=== PATIENT | female | born 1940 | race Caucasian/White ===

== ENCOUNTER → 2016-10-16 | Outpatient (CLI) | payer MEDICARE, BC, OTHER | END | disposition home or self-care (01) | LOC: GMAH 14:23 | PROVIDERS: ATTEND Family Medicine | DX: N39.0 Urinary tract infection, site not specified (principal) ==

== ENCOUNTER 2016-10-19 14:35 | Emergency (ER) | payer MEDICARE, BC, OTHER ==
[2016-10-19] MEDS ORDERED: SODIUM CHLORIDE 0.9% 1000ML 1,000 ML IVS ONE (15:14)
--- NOTE | 2016-10-19 15:32 | ED.PDOC ---
History of Present Illness - General Chief Complaint: General Stated Complaint: Dehydration Time Seen by Provider: 10/19/16 15:13 Source: patient, RN notes reviewed, Vital Signs reviewed Exam Limitations: no limitations - History of Present Illness Initial Comments: Patient comes in with c/o dehydration. She has been having diarrhea and now is feeling weak and getting dizzy when she stands up. When she saw her Dr. on he told her if oral hydration was not working to come to ER for IV fluids. Timing/Duration: constant - 4 days Severity: moderate Improving Factors: nothing Worsening Factors: nothing Associated Symptoms: malaise, weakness Allergies/Adverse Reactions: Allergies Fish Allergy Allergy (Verified 02/06/15 20:17) Home Medications: Ambulatory Orders Amlodipine Besylate-Benazepril [Lotrel 10-20 mg] 1 cap PO 02/06/15 Black Cohosh-Soy Isoflavones-G [Estroven] 1 tab PO 02/06/15 Calcium Citrate-Vitamin D [Calcitrate Plus D 315-200 mg-Unit] 1 tab PO 02/06/15 Garlic [Garlic 705 mg] 1 cap PO 02/06/15 Iron 02/06/15 Metoprolol Succinate [Metoprolol Succinate ER] 25 mg PO 02/06/15 Multiple Vitamin [Multi Vitamin Daily] 1 tab PO 02/06/15 Thyroid [[place] Thyroid] 15 mg PO 02/06/15 levoFLOXacin [Levaquin] 500 mg PO QDAC #10 tab 02/06/15 Acetaminophen W/ Codeine [Tylenol w/Codeine 300-30 mg] 1 tab PO Q4HR PRN #30 tab 10/25/15 Review of Systems - Review of Systems Constitutional: States: malaise, weakness. Denies: chills, fever Respiratory: States: no symptoms reported Cardiology: States: no symptoms reported Gastrointestinal/Abdominal: States: diarrhea. Denies: nausea, vomiting Genitourinary: States: other - Being treated for a UTI - on Cipro Musculoskeletal: States: no symptoms reported Neurological: States: no symptoms reported All other Systems: No Change from Baseline Past Medical History (General) - Patient Medical History Hx Seizures: No Hx Stroke: No Hx Dementia: No Hx Asthma: No Hx of COPD: No Hx Cardiac Disorders: Yes - a-fib Hx Pacemaker: No Hx Hypertension: No Hx Thyroid Disease: No Hx Diabetes: No Hx Gastroesophageal Reflux: No Hx Renal Disease: No Hx Cancer: Yes Hx of HIV: No Hx Hepatitis C: No Hx MRSA: No - Vaccination History Hx Tetanus, Diphtheria Vaccination: Yes Hx Influenza Vaccination: No Hx Pneumococcal Vaccination: No - Social History Hx Tobacco Use: No Hx Chewing Tobacco Use: No Hx Alcohol Use: No Hx Substance Use: No Hx Substance Use Treatment: No Hx Depression: No Hx Physical Abuse: No Hx Emotional Abuse: No Hx Suspected Abuse: No - Female History Patient : No Family Medical History - Family History Son Hx Family Hypertension: Yes Hx Family Stroke: Yes - due to drug abuse Physical Exam - Physical Exam General Appearance: Alert, Comfortable, No apparent distress, Well Developed, Well Groomed, Well Nourished Ears, Nose, Throat: other - moderately dry mucous membranes Neck: non-tender, full range of motion, supple, normal inspection Respiratory: lungs clear, normal breath sounds, no respiratory distress, no accessory muscle use Cardiovascular/Chest: regular rate, rhythm, no gallop, no JVD, no murmur Gastrointestinal/Abdominal: non tender, soft Extremity: normal range of motion, non-tender Neurologic: alert, normal mood/affect, oriented x 3 Skin Exam: normal color, warm/dry Comments: Vital Signs - 24 hr 10/19/16 14:45 Temperature 97.9 F Pulse Rate [ 84 right brachial] Respiratory 20 Rate Blood Pressure 129/73 [right radial] O2 Sat by Pulse 97 Oximetry Progress - Progress Progress: 10/19/16 17:12 Patient is feeling better after IV fluids and would like to go home. Departure - Departure Clinical Impression: Dehydration Time of Disposition: 17:13 Disposition: Discharge to Home or Self Care Condition: Good Departure Forms: ED Discharge - Pt. Copy, Patient Portal Self Enrollment Instructions: DI for Dehydration -- Adult Diet: resume usual diet, other - Increase fluid intake Activity: ambulate only with walker Referrals: Anton Vides MD [Primary Care Provider] - 1-2 Weeks Home Medications: Ambulatory Orders Amlodipine Besylate-Benazepril [Lotrel 10-20 mg] 1 cap PO 02/06/15 Black Cohosh-Soy Isoflavones-G [Estroven] 1 tab PO 02/06/15 Calcium Citrate-Vitamin D [Calcitrate Plus D 315-200 mg-Unit] 1 tab PO 02/06/15 Garlic [Garlic 705 mg] 1 cap PO 02/06/15 Iron 02/06/15 Metoprolol Succinate [Metoprolol Succinate ER] 25 mg PO 02/06/15 Multiple Vitamin [Multi Vitamin Daily] 1 tab PO 02/06/15 Thyroid [[place] Thyroid] 15 mg PO 02/06/15 levoFLOXacin [Levaquin] 500 mg PO QDAC #10 tab 02/06/15 Acetaminophen W/ Codeine [Tylenol w/Codeine 300-30 mg] 1 tab PO Q4HR PRN #30 tab 10/25/15
[2016-10-19 16:45] VITALS: TEMP 97.9
[2016-10-19 17:26] VITALS: O2SAT 99
[2016-10-19 17:34] VITALS: BP 112/72
== END 2016-10-19 17:29 | disposition home or self-care (01) ==
LOC: ER 14:35
DX: E86.0 Dehydration (principal); R19.7 Diarrhea, unspecified; I48.91 Unspecified atrial fibrillation; Z85.9 Personal history of malignant neoplasm, unspecified; Z79.899 Other long term (current) drug therapy; Z91.013 Allergy to seafood
CPT/HCPCS: 36415; 80053; 85025; J7030

== ENCOUNTER 2017-02-15 08:12 | Emergency (ER) | payer MEDICARE, BC, OTHER ==
--- NOTE | 2017-02-15 08:32 | ED.PDOC ---
History of Present Illness - General Chief Complaint: Trauma Time Seen by Provider: 02/15/17 08:23 Source: patient Exam Limitations: no limitations - History of Present Illness Initial Comments: the patientis a 77-year-old female presenting to the emergency room secondary to a fall that occurred in the middle of the night. She remained on the floor for about an hour and a half efore she was able to get back up to her bed. She twisted her right ankle and does have some bruising to the lateral aspect of the ankle.she also tried to catch himself with her right arm and is having some pain in her right shoulder. There is no deformity there. She does have a history of having a rotator cuff tear on that side from about 5 years ago. No other injuries. She appears to be neurovascularly at her baseline. She simply tripped and fell this morning. Timing/Duration: 4-6 hours Severity: moderate Improving Factors: immobilization Worsening Factors: movement Associated Symptoms: denies symptoms Allergies/Adverse Reactions: Allergies Fish Allergy Allergy (Verified 02/15/17 08:31) Home Medications: Ambulatory Orders Black Cohosh-Soy Isoflavones-G [Estroven] 1 tab PO DAILY 02/06/15 Calcium Citrate-Vitamin D [Calcitrate Plus D 315-200 mg-Unit] 1 tab PO DAILY Metoprolol Succinate [Metoprolol Succinate ER] 25 mg PO DAILY 02/06/15 Multiple Vitamin [Multi Vitamin Daily] 1 tab PO DAILY 02/06/15 Deknbqxdsrtmi-Jzri-Kvfnaefavb [Fioricet] 1 ea PO Q8H PRN #21 tab 02/15/17 Amitriptyline HCl [Elavil] 25 mg PO DAILY 02/15/17 Amlodipine Besylate-Benazepril [Lotrel 10-20 mg] 1 cap PO BIW 02/15/17 Ferrous Sulfate [Iron] 65 mg PO DAILY 02/15/17 Garlic 1,000 mg PO DAILY 02/15/17 Levothyroxine Sodium 50 mcg PO DAILY 02/15/17 Rivaroxaban [Xarelto] 15 mg PO DAILY 02/15/17 Review of Systems - Review of Systems Constitutional: States: no symptoms reported EENTM: States: no symptoms reported Respiratory: States: no symptoms reported Cardiology: States: no symptoms reported Gastrointestinal/Abdominal: States: no symptoms reported Genitourinary: States: no symptoms reported Musculoskeletal: States: see HPI Skin: States: no symptoms reported - ome bruising around the right ankle Neurological: States: no symptoms reported All other Systems: No Change from Baseline Past Medical History (General) - Patient Medical History Hx Seizures: No Hx Stroke: No Hx Dementia: No Hx Asthma: No Hx of COPD: No Hx Cardiac Disorders: Yes - a-fib Hx Pacemaker: No Hx Hypertension: No Hx Thyroid Disease: No Hx Diabetes: No Hx Gastroesophageal Reflux: No Hx Renal Disease: No Hx Cancer: Yes Hx of HIV: No Hx Hepatitis C: No Hx MRSA: No - Vaccination History Hx Tetanus, Diphtheria Vaccination: Yes Hx Influenza Vaccination: No Hx Pneumococcal Vaccination: No - Social History Hx Tobacco Use: No Hx Chewing Tobacco Use: No Hx Alcohol Use: No Hx Substance Use: No Hx Substance Use Treatment: No Hx Depression: No Hx Physical Abuse: No Hx Emotional Abuse: No Hx Suspected Abuse: No - Female History Patient : No Family Medical History - Family History Son Hx Family Hypertension: Yes Hx Family Stroke: Yes - due to drug abuse Physical Exam - Physical Exam General Appearance: Alert, Comfortable, No apparent distress Eye Exam: bilateral normal Ears, Nose, Throat: hearing grossly normal, normal ENT inspection, normal pharynx Neck: non-tender, supple Respiratory: no respiratory distress, no accessory muscle use Cardiovascular/Chest: normal peripheral pulses, no edema Peripheral Pulses: radial,right: 2+, radial,left: 2+, dorsalis pedis,right: 2+, dorsalis pedis,left: 2+ Rectal Exam: deferred Extremity: other - there is some limited active range of motion of the right shoulder. Passive range of motion appears to bemoderately well-preserved. She appears to be neurovascularly intact distally. Additionally the patient does have some pain to palpation to the right lateral ankle. There is some bruising and swelling there. No pain over the fifth metatarsal. No pain over the medial ankle. Neurologic: bag grader II-XII nml as tested, alert, normal mood/affect, oriented x 3 Skin Exam: normal color - with the exception of the bruising at the right ankle Progress - Progress Progress: 02/15/17 09:43 the patient is a 77-year-old female presenting to the emergency room secondary to a fall at home last night. The patient appears to have sprained her right ankle and probably did reinjure an old rotator cuff injury on her right shoulder. X-rays show no evidence of fracture or dislocation at either site. The patient is going to be placed in a walking boot for her right ankle. I'm not going to place the right upper extremity in a sling as she is a fall risk and may yet need to use the arm. She should follow up with orthopedics in a couple of weeks for reevaluation. Motrin can be used for discomfort and she will be written for a short prescription of Fioricet for as needed use. ER warnings were given. Departure - Departure Clinical Impression: Right ankle sprain Qualifiers: Encounter type: initial encounter Involved ligament of ankle: unspecified ligament Qualified Code(s): S93.401A - Sprain of unspecified ligament of right ankle, initial encounter Disposition: Discharge to Home or Self Care Condition: Fair Departure Forms: ED Discharge - Pt. Copy, Patient Portal Self Enrollment Instructions: DI for Trauma Diet: regular diet Activity: increase activity as tolerated Referrals: Anton Vides MD [Primary Care Provider] - 1-2 Weeks Prescriptions: Tmhvyguiglyik-Dekv-Oqukicacta [Fioricet] 1 ea PO Q8H PRN #21 tab PRN Reason: Pain Home Medications: Ambulatory Orders Black Cohosh-Soy Isoflavones-G [Estroven] 1 tab PO DAILY 02/06/15 Calcium Citrate-Vitamin D [Calcitrate Plus D 315-200 mg-Unit] 1 tab PO DAILY Metoprolol Succinate [Metoprolol Succinate ER] 25 mg PO DAILY 02/06/15 Multiple Vitamin [Multi Vitamin Daily] 1 tab PO DAILY 02/06/15 Fjmmxphvyewvu-Fdat-Mvkwdyrknk [Fioricet] 1 ea PO Q8H PRN #21 tab 02/15/17 Amitriptyline HCl [Elavil] 25 mg PO DAILY 02/15/17 Amlodipine Besylate-Benazepril [Lotrel 10-20 mg] 1 cap PO BIW 02/15/17 Ferrous Sulfate [Iron] 65 mg PO DAILY 02/15/17 Garlic 1,000 mg PO DAILY 02/15/17 Levothyroxine Sodium 50 mcg PO DAILY 02/15/17 Rivaroxaban [Xarelto] 15 mg PO DAILY 02/15/17 Additional Instructions: the patient is a 77-year-old female presenting to the emergency room secondary to a fall at home last night. The patient appears to have sprained her right ankle and probably did reinjure an old rotator cuff injury on her right shoulder. X-rays show no evidence of fracture or dislocation at either site. The patient is going to be placed in a walking boot for her right ankle. I'm not going to place the right upper extremity in a sling as she is a fall risk and may yet need to use the arm. She should follow up with orthopedics in a couple of weeks for reevaluation. Motrin can be used for discomfort and she will be written for a short prescription of Fioricet for as needed use. ER warnings were given.
[2017-02-15 08:40] VITALS: TEMP 97; O2SAT 98
--- NOTE | 2017-02-15 09:24 | RAD ---
PROCEDURE: Shoulder,Right 2 or More Views Clinical History: fall at 3am with pain Indication: Same as above Comparison: None . Technique: 2.0 views of the right shoulder were done. Findings: There is no visualization of acute fractures or dislocations involving the bones of the right shoulder joint. There is no evidence of periosteal reactions involving the bones of the shoulder joint. The adjacent acromioclavicular joint shows mild degenerative change. The acromiohumeral distance is decreased, suspicious for chronic rotator cuff tendinopathy . There is no evidence of rotator cuff calcific tendinitis. The visualized adjacent ribs do not show any evidence of acute bony trauma. Limited evaluation of the adjacent clavicle, scapula and the acromioclavicular joint does not show any evidence of acute bony trauma. The visualized lung riddle are radiographically unremarkable. The adjacent soft tissues are radiographically unremarkable. There is no visualization of any radiopaque foreign bodies in the soft tissues. Impression: Negative for acute bony trauma involving the right shoulder joint . Place of interpretation: [id number]. Electronically signed by: Camilo Miller MD 02/15/2017 9:23 AM CDT Workstation: [id number]
--- NOTE | 2017-02-15 09:25 | RAD ---
PROCEDURE: Ankle,Right 3 Views CLINICAL HISTORY: fall at 3am with pain INDICATION: Same as above COMPARISON: None . TECHNIQUE: 3.0 Views of the right ankle were done. FINDINGS: There is no evidence of acute fractures or dislocation involving the right ankle. The soft tissues are radiographically unremarkable. There is a small plantar calcaneal spur. There is evidence of prior surgery in the medial hindfoot There is no evidence of periosteal reactions or suspicious bony lesions. The talar dome and the subtalar joints are unremarkable. The joint spaces are relatively well-maintained. IMPRESSION: Negative for acute bony trauma involving the right ankle Place of interpretation: Teleradiology. Electronically signed by: Camilo Miller MD 02/15/2017 9:24 AM CDT Workstation: [id number]
[2017-02-15 09:43] VITALS: BP 129/94
== END 2017-02-15 10:15 | disposition home or self-care (01) ==
LOC: ER 08:12
DX: S93.401A Sprain of unspecified ligament of right ankle, initial encounter (principal); I48.91 Unspecified atrial fibrillation; Z79.01 Long term (current) use of anticoagulants; Z79.899 Other long term (current) drug therapy; W19.XXXA Unspecified fall, initial encounter; Y92.009 Unspecified place in unspecified non-institutional (private) residence as the place of occurrence of the external cause

== ENCOUNTER → 2018-10-07 | Outpatient (CLI) | payer MEDICARE, BC, OTHER | LOC: GMAH 14:16 | PROVIDERS: ATTEND Family Medicine | DX: E03.9 Hypothyroidism, unspecified (principal) ==

== ENCOUNTER → 2019-04-06 | Outpatient (CLI) | payer MEDICARE, BC, OTHER | LOC: GMA MATASK 14:45 | PROVIDERS: ATTEND Family Medicine | DX: I10 Essential (primary) hypertension (principal) ==

== ENCOUNTER → 2019-10-13 | Outpatient (CLI) | payer MEDICARE, BC, OTHER | LOC: GMA MATASK 11:20 | PROVIDERS: ATTEND Family Medicine | DX: E03.9 Hypothyroidism, unspecified (principal); I10 Essential (primary) hypertension ==

== ENCOUNTER → 2020-04-16 | Outpatient (CLI) | payer MEDICARE, OTHER | LOC: GMA MATASK 10:45 | PROVIDERS: ATTEND Family Medicine | DX: I10 Essential (primary) hypertension (principal); E11.9 Type 2 diabetes mellitus without complications ==